=== PATIENT | male | born 1955 | race Caucasian/White ===

== ENCOUNTER 2019-04-13 10:22 | Emergency (ER) | payer MEDICARE, OTHER ==
[~2019-04-13] VITALS: Ht 180.3 cm; Wt 99.8 kg
[2019-04-13] MEDS ORDERED: AMLODIPINE BESYL5 MG PO (10:35)
[2019-04-13] MEDS ORDERED: CARVEDILOL3.125 MG PO (10:35)
[2019-04-13] MEDS ORDERED: AMLODIPINE-BEN1 EACH PO (10:35)
[2019-04-13] MEDS ORDERED: ATORVASTATIN CA10 MG PO (10:36)
[2019-04-13] MEDS ORDERED: ALLOPURINOL300 MG PO (10:36)
[2019-04-13] MEDS ORDERED: FENOFIBRATE54 MG PO (10:36)
[2019-04-13] MEDS ORDERED: LEVEMIR FL100 UNIT/2 SUB-Q (10:37)
[2019-04-13] MEDS ORDERED: CHILDREN'S ASPI81 M1 PO (10:38)
[2019-04-13] MEDS ORDERED: FAMOTIDINE20 MG PO (10:38)
[2019-04-13] MEDS ORDERED: FISH OIL 1,0001 EAC5 PO (10:38)
== END 2019-04-13 11:44 | disposition home or self-care (01) ==
LOC: ED 10:22
DX: I10 Essential (primary) hypertension (principal); E11.9 Type 2 diabetes mellitus without complications; Z87.891 Personal history of nicotine dependence; Z79.899 Other long term (current) drug therapy; Z79.4 Long term (current) use of insulin; Z79.82 Long term (current) use of aspirin
CPT/HCPCS: 96374; 99283-25

== ENCOUNTER 2021-11-18 11:21 | Emergency (ER) | payer MEDICARE, OTHER ==
[~2021-11-18] VITALS: Ht 180.3 cm; Wt 104.3 kg
[~2021-11-18 11:21] MED LIST: ALLOPURINOL300 MG PO; AMLODIPINE BESYL5 MG PO; AMLODIPINE-BEN1 EACH PO; ATORVASTATIN CA10 MG PO; CARVEDILOL3.125 MG PO; CHILDREN'S ASPI81 M1 PO; FAMOTIDINE20 MG PO; FENOFIBRATE54 MG PO; FISH OIL 1,0001 EAC5 PO; LEVEMIR FL100 UNIT/2 SUB-Q
[2021-11-18] MEDS ORDERED: PLAVIX75 MG PO (13:42)
== END 2021-11-18 14:15 | disposition home or self-care (01) ==
LOC: ED 11:21
DX: R20.2 Paresthesia of skin (principal); I10 Essential (primary) hypertension; E11.9 Type 2 diabetes mellitus without complications; Z87.891 Personal history of nicotine dependence; Z79.899 Other long term (current) drug therapy; Z79.4 Long term (current) use of insulin; Z79.82 Long term (current) use of aspirin
CPT/HCPCS: 70450; 70496; 70498; 71045; 80053; 85025; 85610; 85730; 99284-25; Q9967